=== PATIENT | male | born 1970 | race Hispanic/Latino ===

== ENCOUNTER 2022-01-09 21:04 | Emergency (ER) | payer MEDICARE ==
[2022-01-09] MEDS ORDERED: levETIRAcetam 1000 MG/NS 0.75% 1,000 MG/100 ML BAG IV ONE (22:39)
--- NOTE | 2022-01-09 23:08 | Emergency Department Report ---
ED Seizure HPI - General Chief Complaint: Seizure Stated Complaint: SEIZURE Time Seen by Provider: 01/09/22 22:32 Source: patient, EMS Mode of arrival: Stretcher Limitations: No Limitations - History of Present Illness Initial Comments: 51-year-old male with a past medical history of seizures presents to the hospital with seizure. [facility] Residents heard a thud and went to the room within a minute and found patient postictal. Patient states he has been compliant with his Keppra 1000 mg twice daily but has been out of his BuSpar and Cogentin. He has been compliant with his Advair, trazodone, and Celexa. Patient complains of a postseizure headache that is mild to moderate intensity without aggravating alleviating factors. Patient's last dose of Keppra was this evening - Related Data Allergies Allergy/AdvReac Type Severity Reaction Status Date / Time No Known Allergies Allergy Unverified 01/09/22 22:07 ED Review of Systems ROS: Stated complaint: SEIZURE Other details as noted in HPI Comment: All other systems reviewed and negative ED Physical Exam - General Limitations: No Limitations - Other Other exam information: General: No acute distress Head: Atraumatic Eyes: normal appearance ENT: Moist mucous membranes Neck: Normal appearance, no midline tenderness Chest: Clear to auscultation bilaterally CV: Regular rate and rhythm Abdomen: Soft, normal bowel sounds, nontender, nondistended, no rebound or guarding Back: Normal inspection Extremity: Normal inspection, full range of motion Neuro: Alert O x 3, no facial asymmetry, speech clear, no gross motor sensory deficit Psych: Appropriate behavior Skin: No rash ED Course Vital Signs 01/09/22 01/09/22 01/09/22 22:05 23:27 23:29 Temperature 98.4 F 98.0 F Pulse Rate 75 69 Respiratory 16 15 15 Rate Blood Pressure 97/60 112/71 [Right] O2 Sat by Pulse 94 96 100 Oximetry ED Medical Decision Making - Lab Data Result diagrams: 01/09/22 22:50 01/09/22 22:50 Lab Results 01/09/22 01/09/22 Range/Units 22:50 22:50 WBC 7.0 (4.5-11.0) K/mm3 RBC 4.37 (3.65-5.03) M/mm3 Hgb 14.0 (11.8-15.2) gm/dl Hct 43.2 (35.5-45.6) % MCV 99 H (84-94) fl MCH 32 (28-32) pg MCHC 33 (32-34) % RDW 14.4 (13.2-15.2) % Plt Count 135 L (140-440) K/mm3 Lymph % (Auto) 17.9 (13.4-35.0) % [place] % (Auto) 8.8 H (0.0-7.3) % Eos % (Auto) 1.9 (0.0-4.3) % Baso % (Auto) 0.4 (0.0-1.8) % Lymph # (Auto) 1.3 (1.2-5.4) K/mm3 [place] # (Auto) 0.6 (0.0-0.8) K/mm3 Eos # (Auto) 0.1 (0.0-0.4) K/mm3 Baso # (Auto) 0.0 (0.0-0.1) K/mm3 Seg Neutrophils % 71.0 H (40.0-70.0) % Seg Neutrophils # 5.0 (1.8-7.7) K/mm3 Sodium 139 (137-145) mmol/L Potassium 4.3 (3.6-5.0) mmol/L Chloride 101.7 (98-107) mmol/L Carbon Dioxide 26 (22-30) mmol/L Anion Gap 16 mmol/L BUN 23 H (9-20) mg/dL Creatinine 0.8 (0.8-1.3) mg/dL Estimated GFR > 60 ml/min BUN/Creatinine Ratio 29 % Glucose 109 H (75-100) mg/dL Calcium 8.9 (8.4-10.2) mg/dL Magnesium 1.80 (1.7-2.3) mg/dL - Medical Decision Making 51-year-old male presents to the hospital with breakthrough seizure. Received IV Keppra in the ED. Neurologically intact. Toradol provided for postseizure headache with improvement. labs unremarkable. Will discharge to continue current meds and follow-up with neuro Critical Care Time: No Critical care attestation.: If time is entered above; I have spent that time in minutes in the direct care of this critically ill patient, excluding procedure time. ED Disposition Clinical Impression: Breakthrough seizure Disposition: 01 HOME / SELF CARE / HOMELESS Is pt being admited?: No Does the pt Need Aspirin: No Condition: Stable Instructions: Seizure, Adult Additional Instructions: Continue your current medication as prescribed. Follow-up with your doctor or doctor/clinic provided. Return if symptoms worsen as indicated by your discharge instructions. Referrals: PRIMARY CARE, [Primary Care Provider] - 3-5 Days JOSE ENRIQUE BREWER MD [Staff Physician] - 3-5 Days Time of Disposition: 01:39
[2022-01-09 23:23] LABS: BUN/Creatinine Ratio 29; Basophils % (Auto) 0.4 % (0.0-1.8); Blood Urea Nitrogen 23 mg/dL (9-20); Calcium 8.9 mg/dL (8.4-10.2); Eosinophils # (Auto) 0.1 K/mm3 (0.0-0.4); Eosinophils % (Auto) 1.9 % (0.0-4.3); Hematocrit 43.2 % (35.5-45.6); Hemolysis Index 7; Lymphocytes # (Auto) 1.3 K/mm3 (1.2-5.4); Lymphocytes % (Auto) 17.9 % (13.4-35.0); Mean Corpuscular HGB Conc 33 % (32-34); Mean Corpuscular Volume 99 fl (84-94); Monocytes # (Auto) 0.6 K/mm3 (0.0-0.8); Monocytes % (Auto) 8.8 % (0.0-7.3); Platelet Count 135 K/mm3 (140-440); Red Blood Count 4.37 M/mm3 (3.65-5.03); Red Cell Distribution Width 14.4 % (13.2-15.2)
[2022-01-10] MEDS ORDERED: KETOROLAC 30 MG/1 ML INJ IV ONE
[2022-01-10 02:15] VITALS: BP 130/77
[2022-01-10 02:37] LABS: Amphetamine Screen,Urine Negative; Benzodiazepines Screen,Urine Negative; Cannabinoid Screen,Urine Negative; Cocaine Screen,Urine Negative; Methadone Screen,Urine Negative; Opiate Screen,Urine Negative
== END 2022-01-10 01:00 | disposition home or self-care (01) ==
LOC: ED 21:04
DX: R56.9 Unspecified convulsions (principal)
CPT/HCPCS: 36415; 80048; 80307; 83735; 85025; 96374; 96375; 99284; J1885; J1953

== ENCOUNTER 2022-02-03 18:22 | Emergency (ER) | payer MEDICARE ==
[2022-02-04] MEDS ORDERED: IBUPROFEN 600 MG TAB PO ONE (00:01)
[2022-02-04] MEDS ORDERED: ONDANSETRON 4 MG ODT TAB PO ONE (00:01)
[2022-02-04] MEDS ORDERED: HYDROcodone/ACETAMINOPHEN 7.5-325MG TAB PO ONE (00:01)
--- NOTE | 2022-02-04 01:24 | Emergency Department Report ---
ED Lower Extremity HPI - General Chief Complaint: Extremity Problem,Nontraumatic Stated Complaint: LEFT LEG PAIN Source: patient Mode of arrival: Ambulatory Limitations: No Limitations - History of Present Illness Initial Comments: Patient is a 51-year-old male with a history of seizures, bipolar disorder, schizophrenia and anxiety with depression who presents to the ED with complaint of persistent right knee pain after he fell during a seizure episode a week ago. Patient states that the pain has been constant and persistent and that he is unable to bear weight on the right leg because of worsening right knee pain. Patient states that he was treated for his seizures at another hospital where he stayed for 3 days and was discharged. Patient denies dizziness, syncope, chest pain or shortness of breath, nausea and vomiting, numbness and tingling or weakness of lower extremities bilaterally, hip pain, back pain, head or neck injuries or change in vision and headache. MD Complaint: knee injury (RIGHT KNEE PAIN), fall -: week(s) (1) Injury: Knee: Right (Pain) Type of Injury: blunt Place: home Severity: severe Severity scale (0 -10): 7 Improves With: nothing Worsens With: weight bearing, movement, palpation Context: fall Associated Symptoms: snap/pop sensation, swelling, able to partially bear weight. denies: numbness, tingling, unable to bear weight - Related Data Previous Rx's Medication Instructions Recorded Last Taken Type Ibuprofen [Motrin] 800 mg PO Q8HR PRN #30 tablet 02/04/22 Unknown Rx Allergies Allergy/AdvReac Type Severity Reaction Status Date / Time olanzapine [From Zyprexa] Allergy Unknown Verified 02/03/22 19:30 ED Review of Systems ROS: Stated complaint: LEFT LEG PAIN Other details as noted in HPI Constitutional: denies: chills, fever Eyes: denies: eye pain, eye discharge, vision change ENT: denies: ear pain, throat pain Respiratory: denies: cough, shortness of breath, wheezing Cardiovascular: denies: chest pain, palpitations Endocrine: no symptoms reported Gastrointestinal: denies: abdominal pain, nausea, vomiting, diarrhea Genitourinary: denies: urgency, dysuria Musculoskeletal: joint swelling (Mild right knee swelling), arthralgia (Right knee pain). denies: back pain Skin: denies: rash, lesions Neurological: denies: headache, weakness, paresthesias Psychiatric: denies: anxiety, depression Hematological/Lymphatic: denies: easy bleeding, easy bruising ED Past Medical Hx - Past Medical History Hx Seizures: Yes Hx Psychiatric Treatment: Yes (Schizophrenia, bipolar disorder, anxiety, depression) - Social History Smoking Status: Current Every Day Smoker - Medications Home Medications: Home Medications Medication Instructions Recorded Confirmed Last Taken Type Ibuprofen [Motrin] 800 mg PO Q8HR PRN #30 tablet 02/04/22 Unknown Rx ED Physical Exam - General Limitations: No Limitations General appearance: alert, in no apparent distress - Head Head exam: Present: atraumatic, normocephalic, normal inspection - Eye Eye exam: Present: normal appearance, PERRL, EOMI Pupils: Present: normal accommodation - ENT ENT exam: Present: normal exam, normal orophraynx, mucous membranes moist, TM's normal bilaterally, normal external ear exam - Neck Neck exam: Present: normal inspection, full ROM. Absent: tenderness - Respiratory Respiratory exam: Present: normal lung sounds bilaterally. Absent: respiratory distress, wheezes, rales, chest wall tenderness, accessory muscle use, decreased breath sounds, prolonged expiratory - Cardiovascular Cardiovascular Exam: Present: regular rate, normal rhythm, normal heart sounds. Absent: systolic murmur, diastolic murmur, rubs, gallop - GI/Abdominal GI/Abdominal exam: Present: soft, normal bowel sounds. Absent: tenderness, guarding, rigid, hyperactive bowel sounds, hypoactive bowel sounds, organomegaly, bruit - Extremities Exam Extremities exam: Present: normal inspection, full ROM, tenderness (Palpable right knee tenderness with limited range of motion due to pain), normal capillary refill, joint swelling (Mild right knee swelling). Absent: pedal edema, calf tenderness - Back Exam Back exam: Present: normal inspection, full ROM. Absent: tenderness, CVA tenderness (R), CVA tenderness (L), muscle spasm, paraspinal tenderness, vertebral tenderness - Neurological Exam Neurological exam: Present: alert, oriented X3, CN II-XII intact, normal gait, reflexes normal - Psychiatric Psychiatric exam: Present: normal mood, anxious, flat affect - Skin Skin exam: Present: warm, dry, intact, normal color. Absent: rash ED Course Vital Signs 02/03/22 19:18 Temperature 98.6 F Pulse Rate 58 L Respiratory 18 Rate Blood Pressure 102/63 O2 Sat by Pulse 98 Oximetry ED Lower Extremity MDM - Radiology Data Radiology results: report reviewed, image reviewed [facility] [address] [place] [address] XRay Report Signed Patient: JOAN BOOKER MR#: [id number] : 1970 Acct:[id number] Age/Sex: 51 / M ADM Date: 02/03/22 Loc: ED Attending Dr: Ordering Physician: ROSA JONES Date of Service: 02/04/22 Procedure(s): XR knee 3V RT Accession Number(s): [id number] cc: ROSA JONES Fluoro Time In Minutes: RIGHT KNEE 3 VIEWS INDICATION / CLINICAL INFORMATION: pain. COMPARISON: None available. FINDINGS: BONES / JOINT(S): No acute fracture or subluxation. Chronic avulsion medial femoral condyle. 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 ADDITIONAL FINDINGS: None. Signer Name: Gerardo Cochran MD Signed: 02/04/2022 2:31 AM Workstation Name: [id number] Transcribed By: ES Dictated By: Gerardo Cochran MD Electronically Authenticated By: Gerardo Cochran MD Signed Date/Time: 02/04/22230 DD/ 9 TD/TT: - Medical Decision Making This is a 51-year-old male with a history of seizures, bipolar disorder, schizophrenia and anxiety with depression who presents to the ED with complaint of persistent right knee pain after he fell during a seizure episode a week ago. Patient states that the pain has been constant and persistent and that he is unable to bear weight on the right leg because of worsening right knee pain. Patient states that he was treated for his seizures at another hospital where he stayed for 3 days and was discharged. In the ED, patient is alert and oriented x3 and is not in any distress. Patient was treated for pain in the ED. Right knee x-ray showed no acute fractures or subluxations. Right knee was splinted with Dante wrap and the patient was discharged home on pain medications and advised to follow-up with his primary care physician in 5 to 7 days for reevaluation or return to the ED immediately if symptoms get worse. - Differential Diagnosis knee fracture; knee sprain; knee contusion; muscle strain Critical care attestation.: If time is entered above; I have spent that time in minutes in the direct care of this critically ill patient, excluding procedure time. ED Disposition Clinical Impression: Sprain of right knee/leg Qualifiers: Encounter type: initial encounter Qualified Code(s): S83.91XA - Sprain of unspecified site of right knee, initial encounter Muscle strain of right lower extremity Qualifiers: Encounter type: initial encounter Qualified Code(s): S86.911A - Strain of unspecified muscle(s) and tendon(s) at lower leg level, right leg, initial encounter Disposition: HOME / SELF CARE / HOMELESS Is pt being admited?: No Does the pt Need Aspirin: No Condition: Stable Instructions: Knee Sprain, Adult, [id number], Muscle Strain, [id number], Elastic Bandage and RICE Therapy Additional Instructions: The right knee x-ray showed no acute fractures or subluxations. Therefore take medication with food, drink plenty of fluids and follow-up with your primary care physician in 5 to 7 days for reevaluation. Return to the ED immediately if symptoms get worse. Prescriptions: Ibuprofen [Motrin] 800 mg PO Q8HR PRN #30 tablet PRN Reason: Pain , Severe (7-10) Referrals: [facility] [Provider Group] - 3-5 Days Time of Disposition: 01:32 Print Language: GEORGIAN
--- NOTE | 2022-02-04 02:35 | XRay Report ---
RIGHT KNEE 3 VIEWS INDICATION / CLINICAL INFORMATION: pain. COMPARISON: None available. FINDINGS: BONES / JOINT(S): No acute fracture or subluxation. Chronic avulsion medial femoral condyle. 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 ADDITIONAL FINDINGS: None. Signer Name: Gerardo Cochran MD Signed: 02/04/2022 2:31 AM Workstation Name: [id number]
[2022-02-04 02:46] VITALS: BP 133/70
== END 2022-02-04 02:54 | disposition home or self-care (01) ==
LOC: ED 18:22
DX: S86.911A Strain of unspecified muscle(s) and tendon(s) at lower leg level, right leg, initial encounter (principal); R56.9 Unspecified convulsions; F17.200 Nicotine dependence, unspecified, uncomplicated; Z91.09 Other allergy status, other than to drugs and biological substances; Z79.899 Other long term (current) drug therapy; W19.XXXA Unspecified fall, initial encounter; Y93.89 Activity, other specified; Y92.89 Other specified places as the place of occurrence of the external cause; Y99.8 Other external cause status
CPT/HCPCS: 99283; J3490; Q0162